=== PATIENT | female | born 1980 | race Caucasian/White ===

== ENCOUNTER → 2022-09-24 08:02 | Outpatient (CLI) | payer OTHER, SELFPAY ==
--- NOTE | ~2022-09-24 | MMUS_ITS ---
EXAMINATION: MM diagnostic arlin RT w mali, US breast RT limited HISTORY: Follow-up right breast asymmetry TECHNIQUE: Additional 3-D tomosynthesis images of the right breast were performed and synthetic 2-D i mages were generated. CAD analysis was submitted and interpreted. High resolution Limited right breas t ultrasound was performed. COMPARISON: 08/28/2022 BREAST PARENCHYMAL COMPOSITION: Breast composed of scattered areas of fibroglandular density. FINDINGS: MAMMOGRAPHIC FINDINGS: There is a small partially circumscribed mass in the lower central aspect of the right breast near th e nipple. No suspicious calcifications or architectural distortion. ULTRASOUND: Limited right breast ultrasound: At 6:00 near the areola there is a oval complicated cyst with senior internet sales consultant al septations measuring 8 x 4 x 6 mm. No significant posterior features or internal vascularity. IMPRESSION: 1. Probable benign complicated cyst of the right breast at 6:00 near the areola which corresponds to the mammographic abnormality. 2. Recommend 6 month follow-up diagnostic right mammogram and ultrasound BI-RADS category 3, probably benign findings. Reviewed, dictated and finalized at location A. SALES AND STORAGE MANAGER IMPRESSION: 1. Probable benign complicated cyst of the right breast at 6:00 near the areola which corresponds to the mammographic abnormality. 2. Recommend 6 month follow-up diagnostic right mammogram and ultrasound BI-RADS category 3, probably benign findings.
== END ==
PROVIDERS: PCP Family Medicine; Visit Provider Family Medicine
DX: R92.8 Other abnormal and inconclusive findings on diagnostic imaging of breast (principal)
CPT/HCPCS: 76642; 77061; 77065; G0279